=== PATIENT | female | born 1960 | race American Indian/Alaskan Native ===

== ENCOUNTER 2016-08-30 13:14 | Emergency (ER) | payer BC ==
[2016-08-30 14:19] VITALS: BP 148/95
[2016-08-30 14:42] LABS: Basophils % (Auto) 0.4 % (0.0-1.8); Eosinophils % (Auto) 0.3 % (0.0-4.3); Mean Corpuscular HGB Conc 32 % (30-34); Mean Corpuscular Hemoglobin 26 pg (28-32); Mean Corpuscular Volume 81 fl (79-97); Platelet Count 301 K/mm3 (140-440); Red Blood Count 5.31 M/mm3 (3.65-5.03); White Blood Count 8.6 K/mm3 (4.5-11.0)
[2016-08-30 15:04] LABS: Anion Gap 19 mmol/L; BUN/Creatinine Ratio 16.66; Blood Urea Nitrogen 15 mg/dL (7-17); Calcium 9.7 mg/dL (8.4-10.2); Carbon Dioxide 26 mmol/L (22-30); Chloride 96.1 mmol/L (98-107); Glucose 97 mg/dL (65-100); Potassium 4.2 mmol/L (3.6-5.0); Sodium 137 mmol/L (137-145)
[2016-08-30 15:12] LABS: Bacteria,Urine 1+ /HPF (Negative); Bilirubin,Urine NEG (Negative); Blood,Urine NEG (Negative); Ketones,Urine NEG (Negative); Leukocyte Esterase,Urine NEG (Negative); Mucus,Urine FEW /HPF; Nitrite,Urine NEG (Negative); Protein,Urine <15 mg/dL mg/dL (Negative); Urobilinogen,Urine < 2.0 mg/dL (<2.0)
--- NOTE | 2016-09-03 18:52 | ED Elopement Review ---
ED Pt Elopement review - Results review Lab results: Laboratory Tests 08/30/16 08/30/16 08/30/16 14:30 14:30 14:30 WBC 8.6 RBC 5.31 H Hgb 14.0 Hct 43.0 H MCV 81 MCH 26 L MCHC 32 RDW 14.0 Plt Count 301 Lymph % (Auto) 16.9 [place] % (Auto) 4.7 Eos % (Auto) 0.3 Baso % (Auto) 0.4 Lymph # 1.4 [place] # 0.4 Eos # 0.0 Baso # 0.0 Seg Neutrophils % 77.7 H Seg Neutrophils # 6.7 Sodium 137 Potassium 4.2 Chloride 96.1 L Carbon Dioxide 26 Anion Gap 19 BUN 15 Creatinine 0.9 Estimated GFR > 60 BUN/Creatinine Ratio 16.66 Glucose 97 Calcium 9.7 Urine Color Yellow Urine Turbidity Clear Urine pH 5.0 Ur Specific [place] 1.011 Urine Protein <15 mg/dl Urine Glucose (UA) Neg Urine Ketones Neg Urine Blood Neg Urine Nitrite Neg Urine Bilirubin Neg Urine Urobilinogen < 2.0 Ur Leukocyte Esterase Neg Urine WBC (Auto) 1.0 Urine RBC (Auto) 1.0 U Epithel Cells (Auto) 1.0 Urine Bacteria (Auto) 1+ Hyaline Casts 7 Urine Mucus Few - Call Back decision Pt Call Back Decision: Pt to F/U with PMD
== END 2016-08-30 19:15 | disposition left against medical advice (07) ==
LOC: ED 13:14
DX: R11.2 Nausea with vomiting, unspecified (principal); R51 Headache; J34.89 Other specified disorders of nose and nasal sinuses; Z53.21 Procedure and treatment not carried out due to patient leaving prior to being seen by health care provider
CPT/HCPCS: 36415; 80048; 81001; 85025

== ENCOUNTER 2018-09-08 08:30 | Emergency (ER) | payer BC ==
--- NOTE | 2018-09-08 10:14 | Emergency Department Report ---
ED General Adult HPI - General Chief complaint: Dyspnea/Respdistress Stated complaint: RT SIDE CHEST PAIN/MARC Time Seen by Provider: 09/08/18 09:13 Source: patient Mode of arrival: Ambulatory Limitations: No Limitations - History of Present Illness Initial comments: Patient presents to the emergency department with a chief complaint of chest pain that radiates into her back 12 hours. Patient describes the pain as sharp in nature and states it is worse when taking a deep breath. Patient also complains of shortness of breath. Patient states she's had a cardiac cath and stress test bilaterally heart within the last 3 years. Patient denies abdominal pain or headache. -: Sudden Location: chest Radiation: back Severity scale (0 -10): 6 Quality: sharp Consistency: constant Improves with: none Worsens with: other (deep breath) Associated Symptoms: denies other symptoms Treatments Prior to Arrival: none - Related Data Home Medications Medication Instructions Recorded Confirmed Last Taken ALBUTEROL Inhaler (OR & NICU) 1 inhalation INHALATION PRN 01/19/14 01/19/14 Unknown [ProAir] Budesoni/Formotero 160-4.5(Nf) 1 inhalation INHALATION DAILY 01/19/14 01/19/14 01/19/14 [Symbicort 160-4.5] Furosemide [Lasix] 20 mg PO DAILY 01/19/14 01/19/14 01/19/14 Metoprolol [Lopressor TAB] 1 tab PO DAILY 01/19/14 01/19/14 01/19/14 Previous Rx's Medication Instructions Recorded Last Taken Type Ibuprofen [Motrin] 800 mg PO Q8HR PRN #30 tablet 09/08/18 Unknown Rx traMADol [Ultram] 50 mg PO Q6HR PRN #15 tablet 09/08/18 Unknown Rx Allergies Allergy/AdvReac Type Severity Reaction Status Date / Time codeine Allergy ELEVATED HR Verified 08/30/16 14:21 ED Review of Systems ROS: Stated complaint: RT SIDE CHEST PAIN/MARC Other details as noted in HPI Comment: All other systems reviewed and negative Constitutional: denies: chills, fever Eyes: denies: eye pain, eye discharge, vision change ENT: denies: ear pain, throat pain Respiratory: denies: cough, shortness of breath, wheezing Cardiovascular: denies: chest pain, palpitations Endocrine: no symptoms reported Gastrointestinal: denies: abdominal pain, nausea, diarrhea Genitourinary: denies: urgency, dysuria, discharge Musculoskeletal: denies: back pain, joint swelling, arthralgia Skin: denies: rash, lesions Neurological: denies: headache, weakness, paresthesias Psychiatric: denies: anxiety, depression Hematological/Lymphatic: denies: easy bleeding, easy bruising ED Past Medical Hx - Past Medical History Hx Hypertension: Yes Hx Sickle Cell Disease: (SICKLE CELL TRAIT) Hx Seizures: No Hx Asthma: No Hx COPD: Yes Hx HIV: No Additional medical history: OBESITY - Surgical History Additional Surgical History: . TUBAL LIGATION. PARTIAL HYSTERECTOMY - Social History Smoking Status: Never Smoker Substance Use Type: None - Medications Home Medications: Home Medications Medication Instructions Recorded Confirmed Last Taken Type ALBUTEROL Inhaler (OR & NICU) 1 inhalation INHALATION PRN 01/19/14 01/19/14 Unknown History [ProAir] Budesoni/Formotero 160-4.5(Nf) 1 inhalation INHALATION DAILY 01/19/14 01/19/14 01/19/14 History [Symbicort 160-4.5] Furosemide [Lasix] 20 mg PO DAILY 01/19/14 01/19/14 01/19/14 History Metoprolol [Lopressor TAB] 1 tab PO DAILY 01/19/14 01/19/14 01/19/14 History Ibuprofen [Motrin] 800 mg PO Q8HR PRN #30 tablet 09/08/18 Unknown Rx traMADol [Ultram] 50 mg PO Q6HR PRN #15 tablet 09/08/18 Unknown Rx ED Physical Exam - General Limitations: No Limitations General appearance: alert, in no apparent distress - Head Head exam: Present: atraumatic, normocephalic - Eye Eye exam: Present: normal appearance, PERRL, EOMI - ENT ENT exam: Present: mucous membranes moist - Neck Neck exam: Present: normal inspection - Respiratory Respiratory exam: Present: normal lung sounds bilaterally. Absent: respiratory distress - Cardiovascular Cardiovascular Exam: Present: regular rate, normal rhythm. Absent: systolic murmur, diastolic murmur, rubs, gallop - GI/Abdominal GI/Abdominal exam: Present: soft, normal bowel sounds. Absent: distended, tenderness - Extremities Exam Extremities exam: Present: normal inspection - Back Exam Back exam: Present: normal inspection - Neurological Exam Neurological exam: Present: alert, oriented X3, CN II-XII intact. Absent: motor sensory deficit - Psychiatric Psychiatric exam: Present: normal affect, normal mood - Skin Skin exam: Present: warm, dry, intact, normal color. Absent: rash ED Course Vital Signs 09/08/18 09/08/18 09/08/18 08:40 09:11 12:30 Temperature 98.1 F 98.1 F Pulse Rate 82 65 Respiratory 18 16 18 Rate Blood Pressure 155/98 Blood Pressure 141/83 [Right] O2 Sat by Pulse 97 100 Oximetry ED Medical Decision Making - Lab Data Result diagrams: 09/08/18 10:00 09/08/18 10:00 Lab Results 09/08/18 09/08/18 09/08/18 Range/Units 10:00 10:00 10:00 WBC 5.1 (4.5-11.0) K/mm3 RBC 4.59 (3.65-5.03) M/mm3 Hgb 12.5 (10.1-14.3) gm/dl Hct 38.1 (30.3-42.9) % MCV 83 (79-97) fl MCH 27 L (28-32) pg MCHC 33 (30-34) % RDW 13.6 (13.2-15.2) % Plt Count 305 (140-440) K/mm3 Lymph % (Auto) 36.1 H (13.4-35.0) % [place] % (Auto) 7.9 H (0.0-7.3) % Eos % (Auto) 2.3 (0.0-4.3) % Baso % (Auto) 0.8 (0.0-1.8) % Lymph # 1.9 (1.2-5.4) K/mm3 [place] # 0.4 (0.0-0.8) K/mm3 Eos # 0.1 (0.0-0.4) K/mm3 Baso # 0.0 (0.0-0.1) K/mm3 Seg Neutrophils % 52.9 (40.0-70.0) % Seg Neutrophils # 2.7 (1.8-7.7) K/mm3 PT 12.2 (12.2-14.9) Sec. INR 0.86 L (0.87-1.13) APTT 22.2 L (24.2-36.6) Sec. Sodium 142 (137-145) mmol/L Potassium 4.6 (3.6-5.0) mmol/L Chloride 106.1 (98-107) mmol/L Carbon Dioxide 24 (22-30) mmol/L Anion Gap 17 mmol/L BUN 14 (7-17) mg/dL Creatinine 0.7 (0.7-1.2) mg/dL Estimated GFR > 60 ml/min BUN/Creatinine Ratio 20 % Glucose 89 (65-100) mg/dL Calcium 8.9 (8.4-10.2) mg/dL Total Bilirubin 0.60 (0.1-1.2) mg/dL AST 13 (5-40) units/L ALT 14 (7-56) units/L Alkaline Phosphatase 67 (35-129) units/L Troponin T < 0.010 (0.00-0.029) ng/mL NT-Pro-B Natriuret Pep (0-900) pg/mL Total Protein 6.8 (6.3-8.2) g/dL Albumin 3.5 L (3.9-5) g/dL Albumin/Globulin Ratio 1.1 % 09/08/18 09/08/18 Range/Units 10:00 12:23 WBC (4.5-11.0) K/mm3 RBC (3.65-5.03) M/mm3 Hgb (10.1-14.3) gm/dl Hct (30.3-42.9) % MCV (79-97) fl MCH (28-32) pg MCHC (30-34) % RDW (13.2-15.2) % Plt Count (140-440) K/mm3 Lymph % (Auto) (13.4-35.0) % [place] % (Auto) (0.0-7.3) % Eos % (Auto) (0.0-4.3) % Baso % (Auto) (0.0-1.8) % Lymph # (1.2-5.4) K/mm3 [place] # (0.0-0.8) K/mm3 Eos # (0.0-0.4) K/mm3 Baso # (0.0-0.1) K/mm3 Seg Neutrophils % (40.0-70.0) % Seg Neutrophils # (1.8-7.7) K/mm3 PT (12.2-14.9) Sec. INR (0.87-1.13) APTT (24.2-36.6) Sec. Sodium (137-145) mmol/L Potassium (3.6-5.0) mmol/L Chloride (98-107) mmol/L Carbon Dioxide (22-30) mmol/L Anion Gap mmol/L BUN (7-17) mg/dL Creatinine (0.7-1.2) mg/dL Estimated GFR ml/min BUN/Creatinine Ratio % Glucose (65-100) mg/dL Calcium (8.4-10.2) mg/dL Total Bilirubin (0.1-1.2) mg/dL AST (5-40) units/L ALT (7-56) units/L Alkaline Phosphatase (35-129) units/L Troponin T < 0.010 (0.00-0.029) ng/mL NT-Pro-B Natriuret Pep 90.95 (0-900) pg/mL Total Protein (6.3-8.2) g/dL Albumin (3.9-5) g/dL Albumin/Globulin Ratio % - EKG Data -: EKG Interpreted by In EKG shows normal: sinus rhythm Rate: normal - Radiology Data Radiology results: report reviewed - Medical Decision Making Results discussed with the patient Critical care attestation.: If time is entered above; I have spent that time in minutes in the direct care of this critically ill patient, excluding procedure time. ED Disposition Clinical Impression: Nonspecific chest pain, Pleurisy Disposition: TO HOME OR SELFCARE Is pt being admited?: No Does the pt Need Aspirin: No Condition: Stable Instructions: Noncardiac Chest Pain (ED), Pleurisy (ED), Chest Pain (ED) Additional Instructions: return if worse Referrals: PRIMARY CAREMD [Referring] - 3-5 Days [facility] [Provider Group] - 3-5 Days [facility] [Provider Group] - 3-5 Days CODI GAGNON MD [Staff Physician] - 3-5 Days Time of Disposition: 13:28
[2018-09-08 10:21] LABS: Basophils % (Auto) 0.8 % (0.0-1.8); Eosinophils # (Auto) 0.1 K/mm3 (0.0-0.4); Eosinophils % (Auto) 2.3 % (0.0-4.3); Hematocrit 38.1 % (30.3-42.9); Hemoglobin 12.5 gm/dl (10.1-14.3); Lymphocytes # (Auto) 1.9 K/mm3 (1.2-5.4); Lymphocytes % (Auto) 36.1 % (13.4-35.0); Mean Corpuscular HGB Conc 33 % (30-34); Mean Corpuscular Volume 83 fl (79-97); Monocytes # (Auto) 0.4 K/mm3 (0.0-0.8); Monocytes % (Auto) 7.9 % (0.0-7.3); Platelet Count 305 K/mm3 (140-440); Red Blood Count 4.59 M/mm3 (3.65-5.03); Red Cell Distribution Width 13.6 % (13.2-15.2)
--- NOTE | 2018-09-08 10:31 | XRay Report ---
AP CHEST : 09/08/18 08:30:00 CLINICAL: Chest pain. COMPARISON:01/10/09 FINDINGS: Normal heart and pulmonary vessels. The lungs are normally expanded and clear. The bones and soft tissues are unremarkable. IMPRESSION: Normal chest.
[2018-09-08 10:36] LABS: INR 0.86 (0.87-1.13)
[2018-09-08 10:37] LABS: Partial Thromboplastin Time 22.2 Sec. (24.2-36.6)
[2018-09-08 10:49] LABS: Alanine Aminotransferase 14 units/L (7-56); Albumin 3.5 g/dL (3.9-5); BUN/Creatinine Ratio 20; Blood Urea Nitrogen 14 mg/dL (7-17); Calcium 8.9 mg/dL (8.4-10.2); Hemolysis Index 14
--- NOTE | 2018-09-08 11:42 | Cat Scan Report ---
CTA chest: History: Chest pain. Shortness of breath. Findings: No evidence of pulmonary embolism. No pleural or pericardial effusion. No mediastinal mass. Normal lung parenchyma. No discrete nodularity or consolidation Impression: No evidence of pulmonary embolism. No acute changes.
[2018-09-08 12:31] VITALS: BP 141/83
== END 2018-09-08 14:05 | disposition home or self-care (01) ==
LOC: ED 08:30
DX: R09.1 Pleurisy (principal); I10 Essential (primary) hypertension
CPT/HCPCS: 36415; 71045; 71275; 80053; 83880; 84484; 85025; 85610; 85730; 93005; 93010; 99284; Q9967

== ENCOUNTER 2019-07-03 10:36 | Outpatient (CLI) | payer BC ==
--- NOTE | 2019-07-03 16:22 | Mammography Report ---
DIGITAL SCREENING MAMMOGRAM WITH CAD, 07/03/2019 INDICATION: Routine screening mammography. TECHNIQUE: Digital bilateral 2D mammography was obtained in the craniocaudal and mediolateral obliq ue projections. This examination was interpreted with the benefit of Computer-Aided Detection analysi s. COMPARISON: 11/08/2008 FINDINGS: Breast Density: The breasts are almost entirely fatty. There is no evidence of dominant mass, suspicious calcifications or architectural distortion in eithe r breast. IMPRESSION: No mammographic evidence of malignancy. Follow up recommendation: Routine yearly BI-RADS Category 1: Negative. A "normal" or negative report should not discourage follow up or biopsy of a clinically significant f inding. A written summary of these findings will be mailed to the patient. The patient will be entered into a mammography reporting system which will generate a reminder letter for the patient's next appointmen t at the appropriate interval. The [employer] recommends yearly mammograms starting at age 40 and continuing as l pedro as a woman is in good health. Breast MRI is recommended for women with an approximate 20-25% or greater lifetime risk of breast cancer, including women with a strong family history of breast or ova aamir cancer or who have been treated for Hodgkin's disease. Signer Name: Akin Rosa MD Signed: 07/03/2019 4:17 PM Workstation Name: [id number]
== END 2019-07-03 10:37 | disposition home or self-care (01) ==
LOC: MAMMO 10:36
PROVIDERS: ATTEND Obstetrics & Gynecology
DX: Z12.31 Encounter for screening mammogram for malignant neoplasm of breast (principal); N64.89 Other specified disorders of breast
CPT/HCPCS: 77067